=== PATIENT | female | born 1935 | race African-American/Black ===

== ENCOUNTER 2019-02-11 12:26 | Emergency (ER) | payer OTHER, MEDICAID ==
[~2019-02-11] VITALS: Ht 165.1 cm; Wt 80.0 kg
[2019-02-11] MEDS ORDERED: DIPHENHYDRAMINE 50MG CAPSULE PO ONE ×2 (14:15→16:00)
[2019-02-11 14:49] LABS: BASOPHILS % 0.9 % (0.0-2.0); HEMATOCRIT. 41.7 % (36.0-48.0); HEMOGLOBIN. 13.8 g/dL (12.0-16.0); LYMPHOCYTES % 20.1 % (20.0-50.0); MEAN CORPUSCULAR HEMOGLOBIN 31.1 pg (28.0-32.0); MEAN CORPUSCULAR VOLUME 94.1 fL (81.0-99.0); MONOCYTES % 6.8 % (2.0-8.0); NEUTROPHILS % 66.2 % (40.0-76.0); RED BLOOD CELL COUNT 4.43 mill/uL (4.2-5.4); RED CELL DISTRIBUTION WIDTH 14.2 % (11.6-14.6)
[2019-02-11 14:57] LABS: CHLORIDE 106 mEq/L (98-107); PARTIAL THROMBOPLASTIN TIME 27.4 sec (23.4-31.0); PROTHROMBIN TIME 10.4 sec (9.6-11.0)
[2019-02-11 16:57] VITALS: BP 159/76
== END 2019-02-11 18:36 | disposition home or self-care (01) ==
LOC: ER 12:26 → CANBEDREQ 20:21
DX: J06.9 Acute upper respiratory infection, unspecified (principal); L29.9 Pruritus, unspecified; F42.4 Excoriation (skin-picking) disorder; I10 Essential (primary) hypertension
CPT/HCPCS: 36415; 71045; 71046; 80053; 85025; 85610; 85730; 93005; 99284; Q0163

== ENCOUNTER 2019-02-17 14:59 | Emergency (ER) | payer OTHER, MEDICAID ==
[~2019-02-17] VITALS: Ht 167.6 cm; Wt 78.6 kg
[2019-02-17 17:01] LABS: BASOPHILS % 0.9 % (0.0-2.0); EOSINOPHILS % 8.1 % (0.0-5.0); HEMATOCRIT. 38.9 % (36.0-48.0); HEMOGLOBIN. 12.6 g/dL (12.0-16.0); LYMPHOCYTES % 23.4 % (20.0-50.0); MEAN CORPUSCULAR HEMOGLOBIN 30.9 pg (28.0-32.0); MEAN CORPUSCULAR VOLUME 95.1 fL (81.0-99.0); MEAN PLATELET VOLUME 8.1 fl (7.4-10.4); MONOCYTES % 13.8 % (2.0-8.0); NEUTROPHILS % 53.8 % (40.0-76.0); PLATELET 210 x1000/uL (130-400); RED BLOOD CELL COUNT 4.09 mill/uL (4.2-5.4); RED CELL DISTRIBUTION WIDTH 13.7 % (11.6-14.6)
[2019-02-17 17:08] LABS: CHLORIDE 109 mEq/L (98-107)
[2019-02-17] MEDS ORDERED: ASPIRIN 325MG EC TABLET PO ONE (18:00)
[2019-02-17 18:51] VITALS: BP 157/67
[2019-02-17] MEDS ORDERED: DIPHENHYDRAMINE 25MG CAPSULE PO ONE (19:30)
== END 2019-02-17 19:53 | disposition short-term general hospital (02) ==
LOC: ER 14:59 → CANBEDREQ 19:58
DX: R07.89 Other chest pain (principal); R06.02 Shortness of breath; I10 Essential (primary) hypertension
CPT/HCPCS: 36415; 71045; 80053; 83880; 84484; 85025; 93005; 99285; Q0163

== ENCOUNTER 2019-02-19 22:00 | Emergency (ER) | payer OTHER, MEDICAID ==
[~2019-02-19] VITALS: Ht 167.6 cm; Wt 73.0 kg
[2019-02-19] MEDS ORDERED: ASPIRIN 81MG TABLET PO ONE (23:45)
[2019-02-19] MEDS ORDERED: DIPHENHYDRAMINE 25MG CAPSULE PO ONE (23:45)
[2019-02-20 00:14] LABS: BASOPHILS % 0.9 % (0.0-2.0); EOSINOPHILS % 7.3 % (0.0-5.0); HEMATOCRIT. 36.1 % (36.0-48.0); HEMOGLOBIN. 12.2 g/dL (12.0-16.0); LYMPHOCYTES % 27.8 % (20.0-50.0); MEAN CORPUSCULAR HEMOGLOBIN 31.6 pg (28.0-32.0); MEAN CORPUSCULAR VOLUME 93.5 fL (81.0-99.0); MEAN PLATELET VOLUME 8.3 fl (7.4-10.4); MONOCYTES % 12.2 % (2.0-8.0); NEUTROPHILS % 51.8 % (40.0-76.0); PLATELET 214 x1000/uL (130-400); RED BLOOD CELL COUNT 3.86 mill/uL (4.2-5.4); RED CELL DISTRIBUTION WIDTH 13.9 % (11.6-14.6)
[2019-02-20 00:23] LABS: CHLORIDE 108 mEq/L (98-107)
[2019-02-20 01:52] VITALS: BP 148/64
== END 2019-02-20 02:48 | disposition home or self-care (01) ==
LOC: ER 22:00
DX: L29.8 Other pruritus (principal); R52 Pain, unspecified; I10 Essential (primary) hypertension
CPT/HCPCS: 36415; 71045; 80053; 83880; 84484; 85025; 93005; 99284; Q0163

== ENCOUNTER 2019-02-23 00:28 | Emergency (ER) | payer OTHER, MEDICAID ==
[~2019-02-23] VITALS: Ht 167.6 cm; Wt 73.0 kg
[2019-02-23] MEDS ORDERED: DIPHENHYDRAMINE 25MG CAPSULE PO ONE (02:00)
[2019-02-23 02:35] VITALS: BP 143/71
== END 2019-02-23 02:41 | disposition home or self-care (01) ==
LOC: ER 00:28
DX: L29.9 Pruritus, unspecified (principal); R05 Cough; F32.9 Major depressive disorder, single episode, unspecified
CPT/HCPCS: 99283; Q0163

== ENCOUNTER 2019-02-25 01:19 | Emergency (ER) | payer OTHER, MEDICAID ==
[~2019-02-25] VITALS: Ht 165.1 cm; Wt 63.0 kg
[2019-02-25 01:21] VITALS: BP 164/60
== END 2019-02-25 02:32 | disposition home or self-care (01) ==
LOC: ER 01:19
DX: L29.9 Pruritus, unspecified (principal); I10 Essential (primary) hypertension; F41.9 Anxiety disorder, unspecified; Z90.49 Acquired absence of other specified parts of digestive tract
CPT/HCPCS: 99283

== ENCOUNTER 2019-02-27 00:37 | Emergency (ER) | payer OTHER, MEDICAID ==
[~2019-02-27] VITALS: Ht 160 cm; Wt 72.0 kg
[2019-02-27 10:51] VITALS: BP 145/60
== END 2019-02-27 10:57 | disposition home or self-care (01) ==
LOC: ER 00:37
DX: L29.8 Other pruritus (principal); I10 Essential (primary) hypertension
CPT/HCPCS: 99283

== ENCOUNTER 2019-03-01 03:59 | Emergency (ER) | payer OTHER, MEDICAID ==
[~2019-03-01] VITALS: Ht 167.6 cm; Wt 73.0 kg
[2019-03-01] MEDS ORDERED: DEXAMETHASONE 10 MG/ML VIAL IM ONE (06:15)
[2019-03-01 09:52] VITALS: BP 147/68
== END 2019-03-01 10:06 | disposition home or self-care (01) ==
LOC: ER 03:59
DX: L29.9 Pruritus, unspecified (principal); I10 Essential (primary) hypertension; F32.9 Major depressive disorder, single episode, unspecified
CPT/HCPCS: 96372; 99283; J1100

== ENCOUNTER 2019-03-03 09:15 | Emergency (ER) | payer OTHER, MEDICAID ==
[~2019-03-03] VITALS: Ht 165.1 cm; Wt 73.0 kg
[2019-03-03 10:22] LABS: HEMATOCRIT. 36.3 % (36.0-48.0); HEMOGLOBIN. 12.2 g/dL (12.0-16.0); MEAN CORPUSCULAR HEMOGLOBIN 31.2 pg (28.0-32.0); MEAN CORPUSCULAR VOLUME 92.4 fL (81.0-99.0); MEAN PLATELET VOLUME 8.1 fl (7.4-10.4); PLATELET 193 x1000/uL (130-400); RED BLOOD CELL COUNT 3.93 mill/uL (4.2-5.4); RED CELL DISTRIBUTION WIDTH 14.1 % (11.6-14.6)
[2019-03-03 10:27] LABS: CHLORIDE 109 mEq/L (98-107)
[2019-03-03 10:43] LABS: PLATELET ESTIMATE NORMAL
[2019-03-03 14:55] VITALS: BP 155/69
== END 2019-03-03 15:37 | disposition short-term general hospital (02) ==
LOC: ER 09:15
DX: R07.2 Precordial pain (principal); I10 Essential (primary) hypertension; Z96.659 Presence of unspecified artificial knee joint
CPT/HCPCS: 36415; 71045; 83880; 84484; 93005; 99285

== ENCOUNTER 2019-03-09 02:39 | Emergency (ER) | payer OTHER, MEDICAID ==
[~2019-03-09] VITALS: Ht 172.7 cm; Wt 82.0 kg
[2019-03-09] MEDS ORDERED: DIPHENHYDRAMINE 25MG CAPSULE PO ONE (03:30)
[2019-03-09 03:46] VITALS: BP 142/64
== END 2019-03-09 03:47 | disposition home or self-care (01) ==
LOC: ER 02:39
DX: L30.9 Dermatitis, unspecified (principal)
CPT/HCPCS: 99283; Q0163

== ENCOUNTER 2019-03-11 14:49 | Emergency (ER) | payer OTHER, MEDICAID ==
[~2019-03-11] VITALS: Ht 165.1 cm; Wt 69.0 kg
[2019-03-11 16:08] LABS: BASOPHILS % 0.5 % (0.0-2.0); EOSINOPHILS % 7.5 % (0.0-5.0); HEMATOCRIT. 33.9 % (36.0-48.0); HEMOGLOBIN. 11.4 g/dL (12.0-16.0); LYMPHOCYTES % 22.8 % (20.0-50.0); MEAN CORPUSCULAR HEMOGLOBIN 31.7 pg (28.0-32.0); MEAN PLATELET VOLUME 8.2 fl (7.4-10.4); MONOCYTES % 12.2 % (2.0-8.0); PLATELET 195 x1000/uL (130-400); RED BLOOD CELL COUNT 3.61 mill/uL (4.2-5.4); RED CELL DISTRIBUTION WIDTH 14.2 % (11.6-14.6)
[2019-03-11 16:12] LABS: CHLORIDE 107 mEq/L (98-107)
[2019-03-11] MEDS ORDERED: PERMETHRIN 5% CREAM 60GM TOP ONE (16:30)
[2019-03-11 17:15] VITALS: BP 115/79
== END 2019-03-11 17:15 | disposition left against medical advice (07) ==
LOC: ER 14:49
DX: R06.02 Shortness of breath (principal); B86 Scabies; I10 Essential (primary) hypertension
CPT/HCPCS: 36415; 71045; 83880; 84484; 93005; 99284

== ENCOUNTER 2019-04-01 00:16 | Emergency (ER) | payer OTHER, MEDICAID ==
[~2019-04-01] VITALS: Ht 165.1 cm; Wt 77.0 kg
[2019-04-01 02:08] VITALS: BP 138/71
== END 2019-04-01 02:10 | disposition home or self-care (01) ==
LOC: ER 00:16
DX: L29.9 Pruritus, unspecified (principal); I10 Essential (primary) hypertension
CPT/HCPCS: 99283

== ENCOUNTER 2019-04-01 22:25 | Emergency (ER) | payer OTHER, MEDICAID ==
[~2019-04-01] VITALS: Ht 162.6 cm; Wt 64.0 kg
[2019-04-02] MEDS ORDERED: DIPHENHYDRAMINE 25MG CAPSULE PO ONE (01:30)
[2019-04-02 05:25] VITALS: BP 139/62
== END 2019-04-02 05:46 | disposition home or self-care (01) ==
LOC: ER 22:25
DX: B86 Scabies (principal); F41.9 Anxiety disorder, unspecified; I10 Essential (primary) hypertension
CPT/HCPCS: 99283; Q0163

== ENCOUNTER 2019-04-02 21:47 | Emergency (ER) | payer OTHER, MEDICAID ==
[~2019-04-02] VITALS: Ht 165.1 cm; Wt 73.0 kg
[2019-04-02] MEDS: DIPHENHYDRAMINE 50MG/ML VIAL IM PRN (23:41)
[2019-04-03 00:25] VITALS: BP 168/68
== END 2019-04-03 00:36 | disposition home or self-care (01) ==
LOC: ER 21:47
DX: L29.8 Other pruritus (principal); F41.9 Anxiety disorder, unspecified; I10 Essential (primary) hypertension
CPT/HCPCS: 96372; 99283; J1200

== ENCOUNTER 2019-04-06 13:04 | Emergency (ER) | payer OTHER, MEDICAID ==
[~2019-04-06] VITALS: Ht 162.6 cm; Wt 80.0 kg
[2019-04-06] MEDS ORDERED: DIPHENHYDRAMINE 25MG CAPSULE PO ONE (13:30)
[2019-04-06 13:51] LABS: BASOPHILS % 0.6 % (0.0-2.0); EOSINOPHILS % 6.6 % (0.0-5.0); HEMATOCRIT. 32.8 % (36.0-48.0); HEMOGLOBIN. 10.8 g/dL (12.0-16.0); LYMPHOCYTES % 15.7 % (20.0-50.0); MEAN CORPUSCULAR VOLUME 93.6 fL (81.0-99.0); MEAN PLATELET VOLUME 8.1 fl (7.4-10.4); MONOCYTES % 11.6 % (2.0-8.0); NEUTROPHILS % 65.5 % (40.0-76.0); PLATELET 204 x1000/uL (130-400); RED CELL DISTRIBUTION WIDTH 14.5 % (11.6-14.6)
[2019-04-06 13:53] LABS: CHLORIDE 107 mEq/L (98-107)
[2019-04-06 13:55] LABS: INR 1.1; PARTIAL THROMBOPLASTIN TIME 29.1 sec (23.4-31.0); PROTHROMBIN TIME 11.3 sec (9.6-11.0)
[2019-04-06 18:58] VITALS: BP 169/52
== END 2019-04-06 19:40 | disposition home or self-care (01) ==
LOC: ER 13:09
DX: L29.2 Pruritus vulvae (principal); F41.9 Anxiety disorder, unspecified; I10 Essential (primary) hypertension
CPT/HCPCS: 36415; 71045; 80053; 83880; 84484; 85025; 85610; 85730; 93005; 99284; Q0163

== ENCOUNTER 2019-04-09 11:40 | Emergency (ER) | payer OTHER, MEDICAID ==
[~2019-04-09] VITALS: Ht 162.6 cm; Wt 55.0 kg
[2019-04-09] MEDS ORDERED: NITROGLYCERIN 0.4MG TABLET SL SL PRN (12:45)
[2019-04-09 13:18] LABS: BASOPHILS % 0.4 % (0.0-2.0); EOSINOPHILS % 4.5 % (0.0-5.0); HEMATOCRIT. 34.3 % (36.0-48.0); HEMOGLOBIN. 11.4 g/dL (12.0-16.0); LYMPHOCYTES % 13.1 % (20.0-50.0); MEAN CORPUSCULAR HEMOGLOBIN 31.2 pg (28.0-32.0); MEAN CORPUSCULAR VOLUME 93.5 fL (81.0-99.0); MONOCYTES % 11.6 % (2.0-8.0); NEUTROPHILS % 70.4 % (40.0-76.0); PLATELET 202 x1000/uL (130-400); RED BLOOD CELL COUNT 3.66 mill/uL (4.2-5.4); RED CELL DISTRIBUTION WIDTH 14.1 % (11.6-14.6)
[2019-04-09 13:26] LABS: CHLORIDE 106 mEq/L (98-107)
[2019-04-09 13:30] LABS: ETHANOL BLOOD < 10 mg/dL
[2019-04-09 14:40] LABS: CLARITY URINE CLOUDY (CLEAR); COLOR URINE YELLOW (YELLOW); KETONES URINE NEGATIVE (NEGATIVE); LEUKOCYTE ESTERASE URINE 2+ (NEGATIVE); NITRITE URINE POSITIVE (NEGATIVE); OCCULT BLOOD URINE NEGATIVE (NEGATIVE); PROTEIN URINE NEGATIVE (NEGATIVE); SPECIFIC GRAVITY URINE 1.017 (1.005-1.030)
[2019-04-09 14:43] LABS: INR 1.1; PARTIAL THROMBOPLASTIN TIME 30.5 sec (23.4-31.0); PROTHROMBIN TIME 11.2 sec (9.6-11.0)
[2019-04-09] MEDS ORDERED: CEFTRIAXONE 1 G PREMIX 50 ML IV ONE (16:00)
[2019-04-09 18:00] VITALS: BP 136/113
== END 2019-04-09 18:45 | disposition short-term general hospital (02) ==
LOC: ER 11:40 → CANBEDREQ 18:06 → ER 18:45
DX: I24.9 Acute ischemic heart disease, unspecified (principal); N30.00 Acute cystitis without hematuria; I10 Essential (primary) hypertension
CPT/HCPCS: 36415; 71045; 80053; 80320; 81003; 83880; 84484; 85025; 85610; 85730; 87077; 87086; 87186; 93005; 96365; 99285; J0696; G0480

== ENCOUNTER 2019-04-11 07:17 | Emergency (ER) | payer OTHER, MEDICAID ==
[~2019-04-11] VITALS: Ht 165.1 cm; Wt 59.0 kg
[2019-04-11 10:08] VITALS: BP 164/53
== END 2019-04-11 10:11 | disposition home or self-care (01) ==
LOC: ER 08:39
DX: L29.9 Pruritus, unspecified (principal); I10 Essential (primary) hypertension; F41.9 Anxiety disorder, unspecified
CPT/HCPCS: 99283

== ENCOUNTER 2019-04-18 00:41 | Emergency (ER) | payer OTHER, MEDICAID ==
[~2019-04-18] VITALS: Ht 165.1 cm; Wt 77.0 kg
[2019-04-18] MEDS ORDERED: DIPHENHYDRAMINE 25MG CAPSULE PO ONE (01:30)
[2019-04-18 03:32] VITALS: BP 164/63
== END 2019-04-18 03:34 | disposition home or self-care (01) ==
LOC: ER 00:41
DX: L29.9 Pruritus, unspecified (principal); I10 Essential (primary) hypertension
CPT/HCPCS: 99283; Q0163

== ENCOUNTER 2019-05-22 01:24 | Emergency (ER) | payer OTHER, MEDICAID ==
[~2019-05-22] VITALS: Ht 165.1 cm; Wt 73.0 kg
[2019-05-22 04:33] VITALS: BP 156/71
== END 2019-05-22 04:40 | disposition home or self-care (01) ==
LOC: ER 01:24
DX: L25.9 Unspecified contact dermatitis, unspecified cause (principal); I10 Essential (primary) hypertension
CPT/HCPCS: 99283